=== PATIENT | female | born 1975 ===

== ENCOUNTER 2018-01-10 21:03 | Emergency (ER) | payer OTHER ==
[~2018-01-10] VITALS: Ht 172.7 cm; Wt 65.8 kg
== END 2018-01-11 00:35 | disposition home or self-care (01) ==
LOC: ER 21:03 → EDBD 21:03 → ER 01-11 00:35
DX: S61.451A Open bite of right hand, initial encounter (principal); W54.0XXA Bitten by dog, initial encounter; Y93.89 Activity, other specified; Y92.098 Other place in other non-institutional residence as the place of occurrence of the external cause; Y99.8 Other external cause status